=== PATIENT | female | born 1950 | race Caucasian/White ===

== ENCOUNTER 2017-09-30 18:42 | Emergency (ER) | payer BC, MEDICARE ==
[~2017-09-30] VITALS: Ht 162.6 cm; Wt 86.6 kg
[~2017-09-30 18:42] MED LIST changes: -MOVIPREP POWDER PACKET PO STA
[2017-09-30 19:13] VITALS: BP 154/72
[2017-09-30 20:15] VITALS: BP 143/51
[2017-09-30 20:29] LABS: CALCIUM 9.7 mg/dL (8.4-10.5); CARBON DIOXIDE 24.5 mmol/L (20.0-32)
[2017-09-30] MEDS ORDERED: SPS ONE ×2 (20:54→21:22)
[2017-09-30] MEDS: SPS PO STA ×2 (20:57→21:30)
[2017-09-30 21:15] VITALS: BP 146/98
--- NOTE | 2017-09-30 21:20 | ER.PDOC ---
General Chief Complaint: General Complaint Stated Complaint: HIGH POTASSIUM TRAVEL OUT OF US: No Time seen by MD: 20:18 Source: patient Exam Limitations: no limitations History of Present Illness Initial Comments 67 year old white female with high serum Potassium levels. A blood drawn done today for preop prior to colonoscopy Thursday. K came back as 6.8. Denies palpitation, body weakness, shortness of breath, chest pain. On Diclofenac and Naproxen Associated Symptoms: denies symptoms Allergies: Coded Allergies: meperidine (Verified Allergy, Severe, 09/30/17) "I DON'T KNOW THE REACTION, I FELT FUNNY AND RANG THE LOPEZ AND THEY PUT A TUBE DOWN MY THROAT AND TOLD ME NEVER TO TAKE DEMEROL" nut - unspecified (Verified Allergy, Severe, FACIAL SWELLING, 09/30/17) bee venom protein (honey bee) (Verified Allergy, Unknown, 09/30/17) Uncoded Allergies: WASP (Allergy, Unknown, 09/30/17) Home Meds Reported Medications Metformin Hcl (METFORMIN HCL) 500 Mg Tablet, 1 TAB PO BID, #60 TAB 3 Refills 09/30/17 Tolterodine Tartrate (DETROL LA) 4 Mg Cap.er.24h, 1 CAP PO DAILY, #90 CAP 1 Refill 09/30/17 Doxepin Hcl (SILENOR) 6 Mg Tablet, 6 MG PO HS, TABLET 09/30/17 Aspirin (ASPIR-LOW) 81 Mg Tablet.dr, 1 TAB PO DAILY, #30 TAB 3 Refills 09/30/17 Vit A/Vit C/Vit E/Zinc/Copper (PRESERVISION AREDS SOFTGEL) 1 Each Capsule, 1 EACH PO DAILY24, CAPSULE 09/30/17 Cranberry Extract (CRANBERRY) 200 Mg Capsule, 200 MG PO DAILY24, CAPSULE 09/30/17 Pramipexole Di-Hcl (MIRAPEX) 0.25 Mg Tablet, 0.5 TAB PO HS, #30 TAB 5 Refills 09/30/17 Naproxen Sodium (NAPROXEN SODIUM) 550 Mg Tablet, 1 TAB PO BID, #60 TAB 09/30/17 Cyclobenzaprine Hcl (FLEXERIL) 10 Mg Tablet, 1 TAB PO TID PRN for PAIN, #90 TAB 09/30/17 Gabapentin (GABAPENTIN) 300 Mg Capsule, 1 CAP PO TID, #90 CAP 5 Refills 09/30/17 Furosemide (LASIX) 20 Mg Tablet, 1 TAB PO DAILY, #90 TAB 1 Refill 09/30/17 Diclofenac Sodium (DICLOFENAC SODIUM) 75 Mg Tablet.dr, 1 TAB PO BID, #60 TAB 1 Refill 09/30/17 Esomeprazole Magnesium (NEXIUM) 40 Mg Capsule.dr, 1 CAP PO DAILY, #30 CAP 5 Refills 09/30/17 Pravastatin Sodium (PRAVASTATIN SODIUM) 40 Mg Tablet, 1 TAB PO HS, #90 TAB 1 Refill 09/30/17 Metoprolol Tartrate 25MG (LOPRESSER 25MG) 25 Mg Tablet, 1 TAB PO BID, #180 TAB 1 Refill 09/30/17 Olmesartan Medoxomil (BENICAR) 40 Mg Tablet, 1 TAB PO DAILY, #30 TAB 5 Refills 09/30/17 Amlodipine Besylate (AMLODIPINE BESYLATE) 10 Mg Tablet, 1 TAB PO DAILY, #30 TAB 5 Refills 09/30/17 Bupropion Hcl (BUPROPION XL) 300 Mg Tab.er.24h, 1 TAB PO DAILY, #30 TAB 2 Refills 09/30/17 Past Medical History Medical History: diabetes, high cholesterol, hypertension Surgical History: appendectomy, hysterectomy LMP (females 10-50): hysterectomy Social History Smoking: non-smoker Alcohol Use: none Drug Use: none Review of Systems Psychiatric/Neurological: no symptoms reported All Other Systems: Reviewed and Negative Physical Exam General Appearance: No Apparent Distress, WD/WN EENT: eyes nml inspection, nml ENT inspection Neck: Non-Tender, Full Range of Motion Respiratory: chest non-tender, lungs clear, normal breath sounds, no respiratory distress CVS: reg rate & rhythm, no murmur, no gallop, pulses nml, nml capillary refill Gastrointestinal: Normal Bowel Sounds, No Organomegaly, No Pulsatile Mass, Non Tender Back: Normal Inspection, No CVA Tenderness, No Vertebral Tenderness Extremities: Normal Range of Motion, Non-Tender, Normal Inspection, No Pedal Edema, No Calf Tenderness, Normal Capillary Refill, Pelvis Stable 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 Tested, No Motor/Sensory Deficits, Alert, Normal Mood/Affect, Oriented x 3 Skin: Normal Color, Warm/Dry Lymphatic: No Adenopathy Results/Orders Results/Orders Laboratory Tests Test 8/15/18 20:15 Sodium Level 139 mmol/L (132-145) Potassium Level 6.1 mmol/L (3.6-5.2) Chloride Level 105.0 mmol/L (96-109) Carbon Dioxide Level 24.5 mmol/L (20.0-32) Glucose Level 107 mg/dL (70-110) Blood Urea Nitrogen 39 mg/dL (7-18) Creatinine 1.88 mg/dL (0.59-1.40) Calcium Level 9.7 mg/dL (8.4-10.5) Anion Gap 15.6 Estimated GFR () 32.1 (>/=60) BUN/Creatinine Ratio 20.0 Progress Progress EKG did not show changes consistent with hyperkalemia Departure Time of Disposition: 21:17 Disposition: 01 HOME, SELF-CARE Impression: Primary Impression: Hyperkalemia, diminished renal excretion Condition: Stable Referrals: YEFRI ZUNIGA DO (PCP/Family) PRIMARY CARE PROVIDER Comments Kayelate one dose tonight at 12 Repeat chem 7 in AM needs nephrology consult Discontinue Diclofenac and Naproxen Tylenol #3 Follow up pcp RTER prn Duration or Time Spent with Pa: 60 MAT TOBIAS MD Sep 30, 2017 21:20
--- NOTE | 2017-09-30 21:30 | NUR ---
VERBAL ORDER VERBAL ORDER GIVEN BY DR. TOBIAS FOR PATIENT TO TAKE KAYEXELATE 15GM PO AT HOME AT 12:00AM, INSTRUCTIONS GIVEN TO PATIENT. PATIENT VOICED UNDERSTANDING
--- NOTE | 2017-09-30 21:38 | PCM.EKG ---
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
[2017-09-30 21:45] VITALS: BP 149/74
[2017-09-30 21:55] VITALS: BP 143/51
== END 2017-09-30 21:45 | disposition home or self-care (01) ==
LOC: ER 18:42
DX: E87.5 Hyperkalemia (principal); E11.9 Type 2 diabetes mellitus without complications; E78.00 Pure hypercholesterolemia, unspecified; I10 Essential (primary) hypertension; Z90.49 Acquired absence of other specified parts of digestive tract; Z90.710 Acquired absence of both cervix and uterus; Z88.6 Allergy status to analgesic agent; Z91.030 Bee allergy status
CPT/HCPCS: 36415; 80048; 93005; 99285

== ENCOUNTER → 2017-09-30 | Outpatient (CLI) | payer BC, MEDICARE ==
[~2017-09-30] VITALS: Ht 167.6 cm; Wt 86.6 kg
[~2017-09-30] MED LIST: AMLO10TA2 PO; ASPI81TA52 PO; CRAN200C2 PO; CYCL10TA2 PO; DICL75TA2 PO; DOXE6TAB3 PO; ESOM40CA PO; FURO-81 PO; GABA300C10 PO; METF500T5 PO; METO25TA4 PO; MOVIPREP POWDER PACKET PO STA; OLME40TA12 PO; PRAM0.255 PO; PRAV40TA2 PO; TOLT4CAP PO; VIT1CAPS12 PO; [UNRECOGNIZED DRUG - CODE] PO; [UNRECOGNIZED DRUG - CODE] PO
[2017-09-30 15:18] VITALS: BP 153/76
--- NOTE | 2017-09-30 15:37 | PCM.EKG ---
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
[2017-09-30 16:19] LABS: BASOPHIL # 0.1 10^3/uL (0.0-0.1); BASOPHIL % 0.8 % (0.0-0.2); EOSINOPHIL # 0.3 10^3/uL (0.0-0.2); EOSINOPHIL % 2.5 % (0.0-5.0); HEMOGLOBIN 12.1 g/dL (12.0-15.0); LYMPHOCYTES # 2.6 10^3/uL (1.0-4.8); LYMPHOCYTES % 25.7 % (24.0-44.0); MEAN CELL HGB 27.4 pg (26-34); MEAN CELL HGB CONCENTRATION 31.3 g/dL (33-37); MEAN CORP VOLUME 87.6 fL (78-100); MEAN PLATELET VOLUME 11.1 fL (7.8-11.0); MONOCYTES # 0.9 10^3/uL (0.3-0.8); MONOCYTES % 8.9 % (5.0-12.0); NEUTROPHIL # 6.2 10^3/uL (1.8-7.7); NEUTROPHILS % 61.8 % (41.0-85.0); RED CELL DISTRIBUTION WIDTH 14.9 % (11.5-14.5); WHITE BLOOD CELL 10.1 10^3/uL (4.5-11.0)
== END | disposition home or self-care (01) | DRG 951 ==
LOC: LAB 08:00 → EDSTATUS 10-14 08:00
PROVIDERS: ATTEND Surgery
DX: Z12.11 Encounter for screening for malignant neoplasm of colon (principal); Z53.8 Procedure and treatment not carried out for other reasons; Z86.010 Personal history of colon polyps; R13.10 Dysphagia, unspecified; R79.9 Abnormal finding of blood chemistry, unspecified; I10 Essential (primary) hypertension; I25.10 Atherosclerotic heart disease of native coronary artery without angina pectoris; E78.2 Mixed hyperlipidemia; E78.00 Pure hypercholesterolemia, unspecified; E11.9 Type 2 diabetes mellitus without complications; Z90.710 Acquired absence of both cervix and uterus; Z98.890 Other specified postprocedural states; Z88.8 Allergy status to other drugs, medicaments and biological substances; Z90.49 Acquired absence of other specified parts of digestive tract; Z88.6 Allergy status to analgesic agent; Z87.891 Personal history of nicotine dependence
CPT/HCPCS: 36415; 85025; 85610; 85730; 93005

== ENCOUNTER 2017-10-15 01:30 | Day surgery (SDC) | payer BC, MEDICARE ==
[~2017-10-15] VITALS: Ht 167.6 cm; Wt 86.6 kg
[2017-10-15] MEDS ORDERED: NS 1000ML 1,000 ML ONE (05:45)
[2017-10-15 06:34] VITALS: BP 158/73
[2017-10-15] MEDS ORDERED: NS 1000ML 1,000 ML IV SCH (07:00)
[2017-10-15] MEDS ORDERED: SUBLIMAZE ONE (07:05)
[2017-10-15] MEDS ORDERED: LIDOCAINE 2% VIAL ONE (07:05)
[2017-10-15] MEDS ORDERED: DIPRIVAN IV ONE (07:05)
[2017-10-15] MEDS ORDERED: NS 100ML 100 ML IV ONE (07:05)
[2017-10-15 08:51] VITALS: BP 107/54
[2017-10-15 09:05] VITALS: BP 123/79
[2017-10-15 09:20] VITALS: BP 150/60
[2017-10-15 09:25] VITALS: BP 150/60
--- NOTE | 2017-10-15 09:59 | OPH ---
DATE OF SURGERY: 10/15/2017 PREOPERATIVE DIAGNOSIS: History of dysphagia and need for screening. POSTOPERATIVE DIAGNOSES: 1. Gastritis. 2. Healthy colon. SURGEON: Laith Myers DO MEASUREMENT TECHNICIAN: OR staff. ANESTHESIA: Total intravenous anesthesia by Yenifer Bhatt CRNA PROCEDURE PERFORMED: 1. Esophagogastroduodenoscopy with biopsy. 2. Long flexible colonoscopy to cecum. SPECIMENS: Gastric mucosa to path. ESTIMATED BLOOD LOSS: 3 mL. COUNTS: At the completion of the case, counts were correct per OR staff. DESCRIPTION OF PROCEDURE: The patient is a very pleasant 67-year-old female known from previous evaluation. Prior to procedure, informed consent was obtained. At the time of procedure, she was taken to the operative suite and placed in left lateral recumbent position. After adequate sedation, esophagogastroduodenoscope was advanced transorally with pneumoinflation distally in second portion of duodenum. Once the duodenum was adequately visualized, the camera was slowly withdrawn to facilitate the visualization of the duodenal bulb and the pylorus. The pylorus does show some gastritis and biopsies were obtained. The retroflexed maneuver was performed. Cardia and fundus were grossly normal. Camera was reduced. Stomach was decompressed with good hemostasis noted. Scope was slowly withdrawn. Distal, mid and proximal esophagus within normal limits. Vocal cords were visualized within normal limits. Camera was removed. Procedure was discontinued. The patient remains in the OR. Timeout was previously completed. With adequate sedation, a rectal exam was performed. There were no masses. Next, the colonoscope was advanced transanally with pneumoinflation proximally to level of cecum. Quality of prep was adequate. There is some retained liquid stool noted throughout. Once cecum was visualized, camera was slowly withdrawn to facilitate visualization of the ascending colon, hepatic flexure, transverse colon, splenic flexure, descending colon, sigmoid and rectum. There were no overt masses, polyps, or AVMs. At the level 5 cm, camera was retroflexed and reinserted. Anal verge was visualized within normal limits. Camera was reduced, colon was decompressed. Colonoscope was removed. The patient tolerated these procedures well. There were no acute complications noted. Laith Myers DO DR: HARRY/kortney JOB# [id number] CC: Ziyad Green NP
== END 2017-10-15 09:33 | disposition home or self-care (01) | DRG 951 ==
LOC: SDC 01:30
PROVIDERS: ATTEND Surgery
DX: Z12.11 Encounter for screening for malignant neoplasm of colon (principal); K29.50 Unspecified chronic gastritis without bleeding; M19.90 Unspecified osteoarthritis, unspecified site; E11.9 Type 2 diabetes mellitus without complications; K21.9 Gastro-esophageal reflux disease without esophagitis; I10 Essential (primary) hypertension; E66.9 Obesity, unspecified; I25.10 Atherosclerotic heart disease of native coronary artery without angina pectoris; E78.2 Mixed hyperlipidemia; E78.00 Pure hypercholesterolemia, unspecified; Z98.890 Other specified postprocedural states; Z90.722 Acquired absence of ovaries, bilateral; Z90.49 Acquired absence of other specified parts of digestive tract; Z82.49 Family history of ischemic heart disease and other diseases of the circulatory system; Z86.010 Personal history of colon polyps; Z83.3 Family history of diabetes mellitus; Z82.3 Family history of stroke; Z87.891 Personal history of nicotine dependence; Z79.899 Other long term (current) drug therapy; Z79.84 Long term (current) use of oral hypoglycemic drugs; Z88.8 Allergy status to other drugs, medicaments and biological substances; Z91.030 Bee allergy status; Z90.710 Acquired absence of both cervix and uterus; Z88.6 Allergy status to analgesic agent; Z68.30 Body mass index [BMI] 30.0-30.9, adult
CPT/HCPCS: 43239; 45378; 82948 ×2; 88305; J2001; J3010; J3490; J7030; J7050; G0105

== ENCOUNTER 2017-11-12 17:10 | Inpatient (IN) | payer BC, MEDICARE ==
[~2017-11-12] VITALS: Ht 162.6 cm; Wt 91.3 kg
[~2017-11-12 17:10] MED LIST changes: -AMLO10TA2 PO; +AMLO10TA6 PO; +METF500T17 PO; -METF500T5 PO
[2017-11-12] MEDS ORDERED: NS 1000ML 1,000 ML IV ONE (17:30)
[2017-11-12] MEDS ORDERED: NS 1000ML 1,000 ML ONE ×3 (17:36→20:25)
[2017-11-12 17:44] LABS: BASOPHIL % 0.2 % (0.0-0.2); HEMOGLOBIN 9.6 g/dL (12.0-15.0); LYMPHOCYTES # 0.6 10^3/uL (1.0-4.8); LYMPHOCYTES % 4.2 % (24.0-44.0); MEAN CELL HGB 26.8 pg (26-34); MEAN CELL HGB CONCENTRATION 31.9 g/dL (33-37); MEAN CORP VOLUME 84.1 fL (78-100); MEAN PLATELET VOLUME 11.4 fL (7.8-11.0); NEUTROPHIL # 11.2 10^3/uL (1.8-7.7); RED CELL DISTRIBUTION WIDTH 14.5 % (11.5-14.5); WHITE BLOOD CELL 13.9 10^3/uL (4.5-11.0)
[2017-11-12 17:50] VITALS: BP 132/53
--- NOTE | 2017-11-12 18:00 | ER.PDOC ---
General Chief Complaint: Nausea Stated Complaint: KIDNEY PROBLEMS TRAVEL OUT OF US: No Time seen by MD: 17:00 Source: patient Exam Limitations: no limitations History of Present Illness Initial Comments Pt states that her PCP called her today and told her to come to the ER for worsening kidney function on labs this am. She stats that she has been "feeling bad for a couple of days-it silva when I urinate, I haven't had an appetite and I've been nauseated and weak" Severity: moderate Associated Symptoms: loss of appetite, malaise, nausea/vomiting, weakness Allergies: Coded Allergies: meperidine (Verified Allergy, Severe, 09/30/17) "I DON'T KNOW THE REACTION, I FELT FUNNY AND RANG THE LOPEZ AND THEY PUT A TUBE DOWN MY THROAT AND TOLD ME NEVER TO TAKE DEMEROL" nut - unspecified (Verified Allergy, Severe, FACIAL SWELLING, 09/30/17) bee venom protein (honey bee) (Verified Allergy, Unknown, 09/30/17) Uncoded Allergies: WASP (Allergy, Unknown, 09/30/17) Home Meds Reported Medications Metformin Hcl (METFORMIN HCL) 500 Mg Tablet, 1 TAB PO BID, #60 TAB 3 Refills 09/30/17 Tolterodine Tartrate (DETROL LA) 4 Mg Cap.er.24h, 1 CAP PO DAILY, #90 CAP 1 Refill 09/30/17 Doxepin Hcl (SILENOR) 6 Mg Tablet, 6 MG PO HS, TABLET 09/30/17 Aspirin (ASPIR-LOW) 81 Mg Tablet.dr, 1 TAB PO DAILY, #30 TAB 3 Refills 09/30/17 Vit A/Vit C/Vit E/Zinc/Copper (PRESERVISION AREDS SOFTGEL) 1 Each Capsule, 1 EACH PO DAILY24, CAPSULE 09/30/17 Cranberry Extract (CRANBERRY) 200 Mg Capsule, 200 MG PO DAILY24, CAPSULE 09/30/17 Pramipexole Di-Hcl (MIRAPEX) 0.25 Mg Tablet, 0.5 TAB PO HS, #30 TAB 5 Refills 09/30/17 Cyclobenzaprine Hcl (FLEXERIL) 10 Mg Tablet, 1 TAB PO TID PRN for PAIN, #90 TAB 09/30/17 Gabapentin (GABAPENTIN) 300 Mg Capsule, 1 CAP PO TID, #90 CAP 5 Refills 09/30/17 Furosemide (LASIX) 20 Mg Tablet, 1 TAB PO DAILY, #90 TAB 1 Refill 09/30/17 Esomeprazole Magnesium (NEXIUM) 40 Mg Capsule.dr, 1 CAP PO DAILY, #30 CAP 5 Refills 09/30/17 Pravastatin Sodium (PRAVASTATIN SODIUM) 40 Mg Tablet, 1 TAB PO HS, #90 TAB 1 Refill 09/30/17 Metoprolol Tartrate 25MG (LOPRESSER 25MG) 25 Mg Tablet, 1 TAB PO BID, #180 TAB 1 Refill 09/30/17 Olmesartan Medoxomil (BENICAR) 40 Mg Tablet, 1 TAB PO DAILY, #30 TAB 5 Refills 09/30/17 Amlodipine Besylate (AMLODIPINE BESYLATE) 10 Mg Tablet, 1 TAB PO DAILY, #30 TAB 5 Refills 09/30/17 Bupropion Hcl (BUPROPION XL) 300 Mg Tab.er.24h, 1 TAB PO DAILY, #30 TAB 2 Refills 09/30/17 Discontinued Reported Medications Diclofenac Sodium (DICLOFENAC SODIUM) 75 Mg Tablet.dr, 1 TAB PO BID, #60 TAB 1 Refill 09/30/17 Past Medical History Medical History: diabetes, renal disease Surgical History: appendectomy, hysterectomy LMP (females 10-50): postmenopause Social History Smoking: non-smoker Alcohol Use: none Drug Use: none Reviewed Nursing Reviewed: Vital Signs, Abn. Noted, Nursing Assessment Review of Systems Constitutional: malaise, weakness EENTM: denies no symptoms reported, denies see HPI, denies eye pain, denies blurred vision, denies tearing, denies double vision, denies ear pain, denies ear discharge, denies nose pain, denies nose congestion, denies throat pain, denies throat swelling, denies mouth pain, denies mouth swelling, denies other Gastrointestinal: denies abdominal pain, denies constipation, denies diarrhea; nausea Genitourinary: dysuria; denies frequency, denies hematuria, denies pain Musculoskeletal: denies no symptoms reported, denies see HPI, denies back pain , denies gout, denies joint pain, denies joint swelling, denies muscle pain, denies muscle stiffness, denies neck pain, denies other Skin: denies no symptoms reported, denies see HPI, denies change in color, denies change in hair/nails, denies dryness, denies lesions, denies lumps, denies rash, denies other All Other Systems: Reviewed and Negative Physical Exam General Appearance: Mild Distress EENT: eyes nml inspection, nml ENT inspection, pharynx nml Neck: Non-Tender, Full Range of Motion, Supple, Normal Inspection Respiratory: chest non-tender, lungs clear, normal breath sounds, no respiratory distress, no accessory muscle use CVS: reg rate & rhythm, no murmur, no gallop, pulses nml, nml capillary refill Gastrointestinal: Normal Bowel Sounds, No Organomegaly, No Pulsatile Mass, Non Tender Back: Normal Inspection, No CVA Tenderness, No Vertebral Tenderness Extremities: Normal Range of Motion, Non-Tender, Normal Inspection 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 NML as Tested, No Motor/Sensory Deficits, Alert, Normal Mood/Affect, Oriented x 3 Skin: Warm/Dry, Pallor Results/Orders Results/Orders Laboratory Tests Test 11/12/17 17:38 11/12/17 19:30 White Blood Count 13.9 10^3/uL (4.5-11.0) Red Blood Count 3.58 10^6/uL (4.00-5.20) Hemoglobin 9.6 g/dL (12.0-15.0) Hematocrit 30.1 % (36.0-46.0) Mean Corpuscular Volume 84.1 fL (78-100) Mean Corpuscular Hemoglobin 26.8 pg (26-34) Mean Corpuscular Hemoglobin Concent 31.9 g/dL (33-37) Red Cell Distribution Width 14.5 % (11.5-14.5) Platelet Count 185 10^3/uL (150-400) Mean Platelet Volume 11.4 fL (7.8-11.0) Neutrophils (%) (Auto) 81.0 % (41.0-85.0) Lymphocytes (%) (Auto) 4.2 % (24.0-44.0) Monocytes (%) (Auto) 14.0 % (5.0-12.0) Neutrophils # (Auto) 11.2 10^3/uL (1.8-7.7) Lymphocytes # (Auto) 0.6 10^3/uL (1.0-4.8) Monocytes # (Auto) 2.0 10^3/uL (0.3-0.8) Absolute Immature Granulocyte (auto 0.09 10^3 u/L (0-2) Eosinophils % 0.0 % (0.0-5.0) Basophils % 0.2 % (0.0-0.2) Basophils # 0.0 10^3/uL (0.0-0.1) Eosinophil Count 0.0 10^3/uL (0.0-0.2) Sodium Level 135 mmol/L (132-145) Potassium Level 4.0 mmol/L (3.6-5.2) Chloride Level 100.0 mmol/L (96-109) Carbon Dioxide Level 17.8 mmol/L (20.0-32) Anion Gap 21.2 Blood Urea Nitrogen 37 mg/dL (7-18) Creatinine 2.38 mg/dL (0.59-1.40) Estimated GFR () 24.5 (>/=60) BUN/Creatinine Ratio 15.0 Glucose Level 118 mg/dL (70-110) Calcium Level 8.9 mg/dL (8.4-10.5) Total Bilirubin 0.5 mg/dL (0.2-1.0) Aspartate Amino Transf (AST/SGOT) 30 U/L (0-35) Alanine Aminotransferase (ALT/SGPT) 31 U/L (12-78) Alkaline Phosphatase 103 U/L (50-136) Troponin I < 0.02 ng/mL (0.00-0.05) Total Protein 7.3 g/dL (6.4-8.2) Albumin 2.6 g/dL (3.4-5.0) Globulin 4.7 Percent Immature Gran (Cell Imm) 0.60 % (0.00-0.50) Urine Collection Type UNKNOWN Urine Color YELLOW (YELLOW) Urine Appearance CLOUDY (CLEAR) Urine Bilirubin NEGATIVE MG/DL (NEGATIVE) Urine Ketones 5 mg/dL (NEGATIVE) Urine Specific [place] 1.010 (1.005-1.035) Urine pH 5 (5.0-6.0) Urine Protein 15 mg/dL (NEGATIVE) Urine Urobilinogen NORMAL (NEGATIVE) Urine Nitrate NEGATIVE (NEGATIVE) Urine Leukocyte Esterase 500/uL 2+ (NEGATIVE) Urine Blood 10 TR (NEGATIVE) Urine RBC 0-2 RBC/HPF (NONE SEEN) Urine WBC TNTC WBC/HPF (0-2) Urine Squamous Epithelial Cells FEW #/HPF (FEW) Urine Bacteria MODERATE (NONE SEEN) Urine Coarse Granular Casts 0-2 #/LPF Urine Glucose NORMAL (NEGATIVE) Administered Medications Medications (Trade) Dose Ordered Sig/Doug Route PRN Reason Start Time Stop Time Status Last Admin Dose Admin Sodium Chloride 1,000 ml @ 1,000 mls/hr Q1H ONCE IV 11/12/17 17:30 11/12/17 18:30 DC 11/12/17 17:48 Sodium Chloride 1,000 ml @ 1,000 mls/hr Q1H STAT IV 11/12/17 19:26 11/12/17 20:25 11/12/17 19:27 Assess: increased Cr is most likely due to the severe UTI she has plus dehydration. THis should respond well to IV rocephin and IVFs. Progress Progress Recheck 20:00- pt feeling a little bit better after 1 L IVF. Informed her of plan to admit her for IVF IVABs serial labs and she agrees. ph call DR Garcia (hospitalist on duty) case discussed and will admit pt Departure Time of Disposition: 20:06 Disposition: 09 ADMITTED INPATIENT Impression: Primary Impression: UTI (urinary tract infection) Additional Impressions: Dehydration Renal failure (ARF), acute on chronic Condition: Stable Referrals: JOHN MAGALLANES NP (PCP) PRIMARY CARE PROVIDER YEFRI ZUNIGA DO (Family) Duration or Time Spent with Pa: 35 DALTON MANE MD Nov 12, 2017 18:00
[2017-11-12 18:04] LABS: ALANINE AMINOTRANSFERASE(ML) 31 U/L (12-78); ALKALINE PHOSPHATASE 103 U/L (50-136); ASPARTATE AMINO TRANSFERASE 30 U/L (0-35); CALCIUM 8.9 mg/dL (8.4-10.5); CARBON DIOXIDE 17.8 mmol/L (20.0-32); GLUCOSE 118 mg/dL (70-110)
--- NOTE | 2017-11-12 18:06 | NUR ---
PT ARRIVED TO ED VIA POA. ASSISTED BACK TO ROOM VIA W/C WITH AT SIDE. PT C/O N/V AND FLANK PAIN. PT REPORTS SEEING PHYSICIAN EARLIER TODAY WHERE LABS WERE COMPLETED. PT WAS CALLED THIS AFTERNOON BY PHYSICIANS OFFICE AND WAS TOLD TO COME TO ED AFTER RESULTS OF KIDNEY FUNCTION PANEL WAS READ. PT STATES SHE HAS A HX OF KIDNEY PROBLEMS. PT ALSO C/O SORES TO THE MOUTH AND FEVER/CHILLS THAT STARTED THURSDAY.
[2017-11-12 18:45] VITALS: BP 118/53
[2017-11-12] MEDS ORDERED: NS 1000ML 1,000 ML IV STA (19:26)
[2017-11-12 19:31] LABS: BILIRUBIN,URINE NEGATIVE (NEGATIVE); UROBILINOGEN,URINE NORMAL (NEGATIVE)
[2017-11-12 19:45] VITALS: BP 116/41
[2017-11-12 19:47] LABS: APPEARANCE,URINE CLOUDY (CLEAR); UA COLOR YELLOW (YELLOW)
--- NOTE | 2017-11-12 20:00 | NUR ---
ENEDINA MANE ON PHONE WITH DR. MCCONNELL AT THIS TIME REGARDING PT ADMISSION. DR. MCCONNELL TO ADMIT PT TO [facility].
[2017-11-12 20:15] VITALS: BP 134/62
[2017-11-12] MEDS: ROCEPHIN 1,000 MG in NS 100ML 100 ML IV SCH (20:24)
[2017-11-12] MEDS ORDERED: ROCEPHIN ONE (20:26)
[2017-11-12] MEDS ORDERED: NS 100ML 100 ML IV ONE (20:26)
[2017-11-12] MEDS ORDERED: ROCEPHIN 1,000 MG in NS 100ML 100 ML IV SCH (20:30)
--- NOTE | 2017-11-12 20:45 | NUR ---
ADMIT TO [facility] PT TO ROOM 336 A VIA WHEELCHAIR ACCOMPANIED BY PETTY MCNEAL AND PT SPOUSE. PT REMAINS ON ROOM AIR, VITALS STABLE. IV PATENT. NO SIGNS OF DISTRESS NOTED. PERSONAL BELONGINGS SENT WITH PT. REPORT CALLED TO PETTY LORENZANA. RELINQUISH CARE.
[2017-11-12 21:00] VITALS: BP 112/67
[2017-11-12] MEDS ORDERED: TYLENOL PO PRN (21:30)
[2017-11-12] MEDS ORDERED: LIDOCAINE VISCOUS ONE (21:33)
--- NOTE | 2017-11-12 21:45 | NUR ---
Mirza Mirza cath 18F in place per order. Education and teaching about catheter given. Pt verbalized understanding
[2017-11-12] MEDS ORDERED: ONDA4TAB12 PO (22:02)
[2017-11-12] MEDS ORDERED: FAMC500T PO (22:02)
[2017-11-12] MEDS: LIDOCAINE VISCOUS MM PRN (22:02)
[2017-11-12 23:44] VITALS: BP 113/45
[2017-11-13] MEDS ORDERED: TYLENOL PO PRN (00:30)
[2017-11-13] MEDS ORDERED: MIRAPEX ONE (01:07)
--- NOTE | 2017-11-13 01:17 | NUR ---
mirapex Nurse called physician about pt's restless legs. Pt. said its miserable. Physician agreed to continue pt mirapex home meds. Nurse entered the order but did not show in the EMAR. Nurse administered the mirapex to pt and document the administration without scanning.
[2017-11-13 04:14] VITALS: BP 116/69
[2017-11-13] MEDS ORDERED: NS 1000ML 1,000 ML ONE ×2 (04:53→19:26)
[2017-11-13 06:59] LABS: CALCIUM 8.3 mg/dL (8.4-10.5); CARBON DIOXIDE 19.7 mmol/L (20.0-32)
[2017-11-13] MEDS ORDERED: FLEXERIL PO PRN (08:30)
[2017-11-13] MEDS ORDERED: NS 1000ML 1,000 ML IV ONE (09:00)
[2017-11-13] MEDS: FAMVIR PO SCH ×2 (09:00→21:43)
[2017-11-13 09:24] VITALS: BP 144/55
[2017-11-13] MEDS: NORVASC PO SCH (09:37)
[2017-11-13] MEDS: LOPRESSER PO SCH ×2 (09:37→21:44)
[2017-11-13] MEDS: LASIX PO SCH (09:37)
[2017-11-13] MEDS: PROTONIX PO SCH (09:37)
[2017-11-13] MEDS: WELLBUTRIN XL PO SCH (09:38)
[2017-11-13] MEDS: NEURONTIN PO SCH ×3 (09:38→21:43)
[2017-11-13] MEDS: DITROPAN PO SCH ×3 (09:38→21:43)
[2017-11-13] MEDS: ASPIRIN EC PO SCH (09:38)
[2017-11-13] MEDS: MYCOSTATIN PO SCH ×3 (09:38→21:43)
[2017-11-13] MEDS: COZAAR PO SCH (09:38)
--- NOTE | 2017-11-13 10:33 | HPH ---
ADMIT DATE: PRIMARY CARE PHYSICIAN: Ziyad Green NP CHIEF COMPLAINT: Reported kidney problems. HISTORY OF PRESENT ILLNESS: The patient is a 67-year-old woman with a past medical history significant for chronic kidney disease with unknown baseline, likely CKD stage 3; hyperlipidemia; GERD; diabetes mellitus type 2; hypertension. She presented to the ER with initial reports of kidney problems. She states her PCP called and stated that her kidneys were worsening on labs I did and asked her to go to the Emergency Room. She has had 3 days of generalized body aches and pains, some subjective fever and chills. Also complains of some dysuria. She had decreased appetite and felt nauseated and weak. These symptoms have been going on for several days. She has no known sick contacts. She had recent travel to [place], [place] about 2 weeks ago. She does have some thrush noted in her mouth and has not had that problem before. She recently started on famciclovir, but it is unclear treatment for what this was given. No other recent medication changes. PAST MEDICAL HISTORY: Includes hypertension, diabetes mellitus type 2, peripheral neuropathy, GERD, hyperlipidemia, urinary incontinence. PAST SURGICAL HISTORY: She has had appendectomy, hysterectomy. ALLERGIES: Allergic to MEPERIDINE and BEE VENOM. HOME MEDICATIONS: List includes amlodipine 10 mg daily, aspirin 81 mg daily, bupropion 300 mg daily, cranberry 200 mg daily, Flexeril as needed for muscle spasms, doxepin 6 mg at night, Nexium 40 mg daily, famciclovir 500 mg twice a day, Lasix 20 mg daily, gabapentin 300 mg 3 times a day, metformin 500 mg twice a day, metoprolol tartrate 25 mg twice a day, Benicar 40 mg daily, Zofran as needed, Mirapex 0.25 mg tablet and she takes 2 tablets at night, pravastatin 40 mg daily, Detrol-LA 4 mg daily and PreserVision daily. SOCIAL HISTORY: Lives at home. No alcohol, tobacco or illicit drug use history. FAMILY HISTORY: Negative for early coronary artery disease or diabetes. REVIEW OF SYSTEMS: CARDIAC: Denies chest pain, shortness of breath or dyspnea on exertion. PULMONARY: No cough, sputum production or pleuritic chest pain. GASTROINTESTINAL: Some mild nausea, no vomiting, diarrhea or constipation. All else negative in 10 point review of system except as in HPI. PHYSICAL EXAMINATION: VITAL SIGNS: Upon arrival to the Emergency Room, height 162.5 cm, weight 90.5 kilograms, temperature 99.1, pulse of 109, respiratory rate 18, blood pressure 132/53, O2 saturation 95% on room air. GENERAL: She is alert, in no acute distress at time of exam. HEENT: Pupils equal, round, reactive to light. Sclerae are anicteric. Oropharynx shows some thrush. Mucous membranes are slightly dry. NECK: Supple, no lymphadenopathy. CARDIOVASCULAR: At time of exam was slightly tachycardic, regular rhythm. LUNGS: Clear bilaterally. No wheezing. ABDOMEN: Soft. Bowel sounds are present, nontender to palpation. EXTREMITIES: No cyanosis, clubbing or significant edema. NEUROLOGIC: Grossly nonfocal. LABORATORY DATA: CBC: White count 13.9, hemoglobin 9.6 and platelets 185. Differential: 81% neutrophils, 4% lymphocytes, 14% monocytes. Sodium 135, potassium 4.0, chloride is 100, CO2 is 18, BUN 37, creatinine 2.38, glucose 118, calcium is 8.9, total bilirubin 0.5, AST 30, ALT is 31, alkaline phosphatase is 103, total protein 7.3, albumin 2.6. Troponin I is less than 0.02. UA; pH is 5.0, specific gravity is 1.010, 15 mg/dL of protein, too numerous to count wbc's, few squamous epithelial cells, moderate bacteria. ASSESSMENT AND PLAN: The patient is a 67-year-old woman here with viral syndrome concerning for influenza with urinary tract infection and acute renal failure on top of chronic kidney disease stage 3 due to acute tubular necrosis, dehydration with multiple medical problems including diabetes mellitus type 2, hypertension, hyperlipidemia. She also has anemia due to chronic disease and moderate protein-calorie malnutrition. 1. We will continue IV fluids. 2. Continue IV antibiotics. We will check an influenza swab. Symptoms have been present for 4 days unless the influenza swab is positive, we will hold off on starting Tamiflu at this point. 3. ADA diet, Accu-Cheks before meals and at bedtime, sliding scale insulin. 4. Continue rest of her home medications. 5. Ambulate as tolerated. 6. DVT prophylaxis with SCDs. Time spent on 11/13/2017 is 45 minutes. This plan was discussed with the patient. She is her own decision maker. She does understand and concur with plans. Shahram Garcia MD DR: LYNDA/kortney JOB# [id number]
--- NOTE | 2017-11-13 10:40 | NUR ---
DISCHARGE PLAN CM VISITED WITH PATIENT REGARDING DISCHARGE PLAN AND NEEDS. PATIENT LIVES AT HOME WITH HER ON A RANCH. SHE IS VERY ACTIVE AND INDEPENDENT AND DENIES NEED FOR ANY RESOURCES AT THIS TIME. DISCHARGE GOAL IS TO DISCHARGE HOME WITH HER AND CONTINUE WITH ROUTINE SELF CARE. CM DEPT WILL CONTINUE TO MONITOR DISCHARGE NEEDS.
[2017-11-13 16:53] VITALS: BP 136/61
--- NOTE | 2017-11-13 18:55 | NUR ---
REPORT RECEIVED FROM PETTY NAVARRO.
[2017-11-13 19:19] VITALS: BP 123/48
--- NOTE | 2017-11-13 19:30 | NUR ---
ASSESSMENT COMPLETED. PATIENT SITTING UP IN BED. AT BEDSIDE. PATIENT STATES "MY MOUTH IS HURTING SOOOO BAD!! IT FEELS LIKE KNIVES ARE CUTTING IT UP! IT FONSECA!" LESIONS PRESENT ON ROOF OF MOUTH, YELLOW PATCHES, LESION PRESENT ON TOP LIP, PATIENT REPORTS LESIONS BEGAN ABOUT 4 DAYS AGO. PATIENT DENIES HX OF LESIONS BEFORE. REPORTS UNABLE TO EAT AND DRINKING HAS BEEN DIFFICULTY. STATES "I AM FINALLY ABLE TO TOLERATE DRINKING WATER NOW. IT FELT LIKE ACID FOR A WHILE." ADMINISTERED VISCOUS LIDOCAINE. PATIENT APPLYING TO LESIONS AND REPORTS SOME PAIN RELIEF. PATIENT DENIES S/S HYPO/HYPERGLYCEMIA. ALY PATENT DRAINING CLEAR YELLOW URINE TO CDU. SECURED TO LEFT THIGH. IV PATENT WITHOUT S/S INFILTRATION. NS INFUSING VIA PUMP AT 150CC/HR. NO DISTRESS NOTED AT PRESENT. SR UP X2. CALL LIGHT WITHIN REACH.
[2017-11-13] MEDS: LIDOCAINE VISCOUS MM PRN (19:32)
[2017-11-13] MEDS: ZOCOR PO SCH (21:43)
[2017-11-13] MEDS: ROCEPHIN 1,000 MG in NS 100ML 100 ML IV SCH (21:43)
[2017-11-13] MEDS: MIRAPEX PO SCH (21:44)
[2017-11-13] MEDS: NS 1000ML 1,000 ML IV SCH (21:46)
[2017-11-13] MEDS: REQUIP PO SCH (22:34)
--- NOTE | 2017-11-14 00:10 | NUR ---
PATIENT AWAKENED EASILY WHILE ASSESSING VITAL SIGNS. DENIES PAIN OR DISCOMFORT. ASSISTED WITH REPOSITIONING AND COMFORT MEASURES. SR UP X2. CALL LIGHT WITHIN REACH.
[2017-11-14 00:23] VITALS: BP 115/53
[2017-11-14 04:00] VITALS: BP 120/63
[2017-11-14 05:30] LABS: CALCIUM 8.3 mg/dL (8.4-10.5); CARBON DIOXIDE 19.6 mmol/L (20.0-32)
--- NOTE | 2017-11-14 06:33 | NUR ---
REPORT REPORT RECEIVED, ASSUMED CARE OF PT
[2017-11-14 07:50] VITALS: BP 148/62
[2017-11-14] MEDS: NS 1000ML 1,000 ML IV SCH (07:51)
[2017-11-14] MEDS: MYCOSTATIN PO SCH ×3 (09:35→20:50)
[2017-11-14] MEDS: LASIX PO SCH (09:36)
[2017-11-14] MEDS: ASPIRIN EC PO SCH (09:36)
[2017-11-14] MEDS: PROTONIX PO SCH (09:36)
[2017-11-14] MEDS: NORVASC PO SCH (09:36)
[2017-11-14] MEDS: COZAAR PO SCH (09:36)
[2017-11-14] MEDS: WELLBUTRIN XL PO SCH (09:36)
[2017-11-14] MEDS: FAMVIR PO SCH ×2 (09:36→20:50)
[2017-11-14] MEDS: DITROPAN PO SCH ×3 (09:37→20:50)
[2017-11-14] MEDS: NEURONTIN PO SCH ×3 (09:37→20:50)
[2017-11-14] MEDS: LOPRESSER PO SCH ×2 (09:37→20:50)
--- NOTE | 2017-11-14 11:09 | PRM.PN ---
Subjective Subjective Date: Nov 14, 2017 Time: 10:55 Subjective Pt feeling better Patient History: Cerebrovascular disorder 32 MOTHER, , Age:71 Chronic obstructive pulmonary disease G8 SISTER Diabetes insipidus 33 FATHER, , Age:89 Diabetes mellitus V19 CHILD V19 CHILD Hypertension 32 MOTHER, , Age:69 33 FATHER, , Age:89 No known health problems G8 SISTER G8 SISTER No Family History of: Alzheimer's disease Asthma Congestive heart failure Parkinson's disease VTE VTE Risk Total Score: 2 VTE Risk Score VTE Risk: Score 0-1 = Low Risk (Aggressive mobilization; early ambulation; no VTE prophylaxis required) Score 2: Moderate Risk (Intermittent/Pneumatic Compression Device OR Lovenox/Heparin/Coumadin) Score 3-4: High Risk (Intermittent/Pneumatic Compression Device AND Lovenox/Heparin/Coumadin) Score > or =5: Highest Risk (Intermittent/Pneumatic Compression Device AND Lovenox/Heparin/Coumadin) Antico:Hep/LMWH/Coum/Xarelto: No Mechanical device ordered: Yes Reasons not ordering prophylax: Renal impairment, At risk for falls Review of Systems Constitutional: No: Weakness, Malaise Eyes: No: Pain, Vision change, Conjunctivae inflammation, Eyelid inflammation ENT: No: Ear pain, Ear discharge, Nose pain, Nose discharge Respiratory: No: Cough, Dry, Shortness of breath, SOB with excertion Cardiovascular: No: Chest Pain, Palpitations, Orthopnea, Paroxysmal Noc. Dyspnea Gastrointestinal: No: Nausea, Abdominal Pain, Diarrhea, Constipation Genitourinary: No Dysuria, No Frequency, No Incontinence, No Hematuria Musculoskeletal: No: neck pain, shoulder pain, arm pain, back pain Skin: No: Lesions, Jaundice, Bruising Neurological: No: Numbness, Incoordination, Change in speech, Confusion, Seizures Allergies: Coded Allergies: meperidine (Verified Allergy, Severe, 09/30/17) "I DON'T KNOW THE REACTION, I FELT FUNNY AND RANG THE [facility] AND THEY PUT A TUBE DOWN MY THROAT AND TOLD ME NEVER TO TAKE DEMEROL" nut - unspecified (Verified Allergy, Severe, FACIAL SWELLING, 09/30/17) bee venom protein (honey bee) (Verified Allergy, Unknown, 09/30/17) Uncoded Allergies: WASP (Allergy, Unknown, 09/30/17) Scheduled Amlodipine Besylate (Amlodipine Besylate), 1 TAB PO DAILY, (Reported) Aspirin (Aspir-Low), 1 TAB PO DAILY, (Reported) Bupropion Hcl (Bupropion Xl), 1 TAB PO DAILY, (Reported) Cranberry Extract (Cranberry), 200 MG PO DAILY24, (Reported) Doxepin Hcl (Silenor), 6 MG PO HS, (Reported) Esomeprazole Magnesium (Nexium), 1 CAP PO DAILY, (Reported) Famciclovir (Famciclovir), 500 MG PO BID, (Reported) Furosemide (Lasix), 1 TAB PO DAILY, (Reported) Gabapentin (Gabapentin), 1 CAP PO TID, (Reported) Metformin Hcl (Metformin Hcl), 1 TAB PO BID, (Reported) Metoprolol Tartrate 25MG (Lopresser 25MG), 1 TAB PO BID, (Reported) Olmesartan Medoxomil (Benicar), 1 TAB PO DAILY, (Reported) Ondansetron Hcl (Ondansetron Hcl), 4 MG PO Q8HR, (Reported) Pramipexole Di-Hcl (Mirapex), 0.5 TAB PO HS, (Reported) Pravastatin Sodium (Pravastatin Sodium), 1 TAB PO HS, (Reported) Tolterodine Tartrate (Detrol La), 1 CAP PO DAILY, (Reported) Vit A/Vit C/Vit E/Zinc/Copper (Preservision Areds Softgel), 1 EACH PO DAILY24, ( Reported) Scheduled PRN Cyclobenzaprine Hcl (Flexeril), 1 TAB PO TID PRN for PAIN, (Reported) Discontinued Medications Diclofenac Sodium (Diclofenac Sodium), 1 TAB PO BID, (Reported) Discontinued Reason: No Longer Taking Objective Vitals and I/O Vital Sign - Last 24 Hours 11/13/17 11/13/17 11/13/17 11/13/17 16:53 19:19 19:30 21:44 Temp 98.3 100.5 98.3 100.5 Pulse 90 87 87 Resp 18 20 B/P (MAP) 136/61 (86) 123/48 (73) 123/48 Pulse Ox 96 96 O2 Delivery Room Air Room Air Room Air 11/14/17 11/14/17 11/14/17 11/14/17 00:23 04:00 09:36 09:36 Temp 99.7 98.4 99.7 98.4 Pulse 82 84 84 Resp 18 18 B/P (MAP) 115/53 (73) 120/63 (82) 120/63 120/63 Pulse Ox 92 93 O2 Delivery Room Air Room Air 11/14/17 11/14/17 09:36 09:37 Pulse 84 B/P (MAP) 120/63 120/63 Intake and Output 11/13/17 11/13/17 11/14/17 15:00 23:00 07:00 Output Total 2400 ml Balance -2400 ml General: Alert, No acute distress HEENT: Atraumatic, Mucous membr. moist/pink Neck: Supple, +2 carotid pulse wo bruit Lungs: Clear to auscultation, Normal air movement Heart: Regular rate, Normal S1, Normal S2 Abdomen: Normal bowel sounds, Soft, No tenderness Extremities: No clubbing, No cyanosis, No edema Skin: No rashes, No breakdown, No significant lesion Neuro: Normal gait, Normal speech Course Sepsis Screening Results: Posi: POSITIVE Sepsis Qualifier/Stage: NO DEFINITE RISK Vitals & review Data Vital Sign - Last 24 Hours 11/13/17 11/13/17 11/13/17 11/13/17 16:53 19:19 19:30 21:44 Temp 98.3 100.5 98.3 100.5 Pulse 90 87 87 Resp 18 20 B/P (MAP) 136/61 (86) 123/48 (73) 123/48 Pulse Ox 96 96 O2 Delivery Room Air Room Air Room Air 11/14/17 11/14/17 11/14/17 11/14/17 00:23 04:00 09:36 09:36 Temp 99.7 98.4 99.7 98.4 Pulse 82 84 84 Resp 18 18 B/P (MAP) 115/53 (73) 120/63 (82) 120/63 120/63 Pulse Ox 92 93 O2 Delivery Room Air Room Air 11/14/17 11/14/17 09:36 09:37 Pulse 84 B/P (MAP) 120/63 120/63 Intake and Output 11/13/17 11/13/17 11/14/17 15:00 23:00 07:00 Output Total 2400 ml Balance -2400 ml Laboratory Tests Test 11/12/17 17:38 11/12/17 19:30 11/13/17 06:46 11/13/17 10:15 White Blood Count 13.9 10^3/uL Red Blood Count 3.58 10^6/uL Hemoglobin 9.6 g/dL Hematocrit 30.1 % Mean Corpuscular Volume 84.1 fL Mean Corpuscular Hemoglobin 26.8 pg Mean Corpuscular Hemoglobin Concent 31.9 g/dL Red Cell Distribution Width 14.5 % Platelet Count 185 10^3/uL Mean Platelet Volume 11.4 fL Neutrophils (%) (Auto) 81.0 % Lymphocytes (%) (Auto) 4.2 % Monocytes (%) (Auto) 14.0 % Neutrophils # (Auto) 11.2 10^3/uL Lymphocytes # (Auto) 0.6 10^3/uL Monocytes # (Auto) 2.0 10^3/uL Absolute Immature Granulocyte (auto 0.09 10^3 u/L Eosinophils % 0.0 % Basophils % 0.2 % Basophils # 0.0 10^3/uL Eosinophil Count 0.0 10^3/uL Sodium Level 135 mmol/L 139 mmol/L Potassium Level 4.0 mmol/L 4.6 mmol/L Chloride Level 100.0 mmol/L 108.0 mmol/L Carbon Dioxide Level 17.8 mmol/L 19.7 mmol/L Anion Gap 21.2 15.9 Blood Urea Nitrogen 37 mg/dL 31 mg/dL Creatinine 2.38 mg/dL 1.91 mg/dL Estimated GFR () 24.5 31.5 BUN/Creatinine Ratio 15.0 16.0 Glucose Level 118 mg/dL 87 mg/dL Calcium Level 8.9 mg/dL 8.3 mg/dL Total Bilirubin 0.5 mg/dL Aspartate Amino Transf (AST/SGOT) 30 U/L Alanine Aminotransferase (ALT/SGPT) 31 U/L Alkaline Phosphatase 103 U/L Troponin I < 0.02 ng/mL Total Protein 7.3 g/dL Albumin 2.6 g/dL Globulin 4.7 Percent Immature Gran (Cell Imm) 0.60 % Urine Collection Type UNKNOWN Urine Color YELLOW Urine Appearance CLOUDY Urine Bilirubin NEGATIVE MG/DL Urine Ketones 5 mg/dL Urine Specific [place] 1.010 Urine pH 5 Urine Protein 15 mg/dL Urine Urobilinogen NORMAL Urine Nitrate NEGATIVE Urine Leukocyte Esterase 500/uL 2+ Urine Blood 10 TR Urine RBC 0-2 RBC/HPF Urine WBC TNTC WBC/HPF Urine Squamous Epithelial Cells FEW #/HPF Urine Bacteria MODERATE Urine Coarse Granular Casts 0-2 #/LPF Urine Glucose NORMAL Influenza Type A Antigen NEGATIVE Influenza B Immunofluorescence NEGATIVE Test 11/14/17 04:56 Sodium Level 139 mmol/L Potassium Level 3.9 mmol/L Chloride Level 107.0 mmol/L Carbon Dioxide Level 19.6 mmol/L Glucose Level 83 mg/dL Blood Urea Nitrogen 24 mg/dL Creatinine 1.56 mg/dL Calcium Level 8.3 mg/dL Anion Gap 16.3 Estimated GFR () 39.8 BUN/Creatinine Ratio 15.0 Current Medications Medications (Trade) Dose Ordered Sig/Doug PRN Reason Start Time Stop Time Status Last Admin Acetaminophen (Tylenol) 1,000 mg Q6H PRN PAIN 11/13/17 00:30 12/13/17 00:29 Amlodipine Besylate (Norvasc) 10 mg DAILY 11/13/17 09:00 12/13/17 08:59 11/14/17 09:36 Aspirin (Aspirin Ec) 81 mg DAILY 11/13/17 09:00 12/13/17 08:59 11/14/17 09:36 Bupropion HCl (Wellbutrin Xl) 300 mg DAILY 11/13/17 09:00 12/13/17 08:59 11/14/17 09:36 Ceftriaxone Sodium 1000 mg/ Sodium Chloride 100 ml @ 100 mls/hr Q24HRS 11/12/17 20:30 12/12/17 20:29 11/13/17 21:43 Cyclobenzaprine HCl (Flexeril) 10 mg TID PRN PAIN 11/13/17 08:30 12/13/17 08:29 Famciclovir (Famvir) 500 mg BID 11/13/17 09:00 12/13/17 08:59 11/14/17 09:36 Furosemide (Lasix) 20 mg DAILY 11/13/17 09:00 12/13/17 08:59 11/14/17 09:36 Gabapentin (Neurontin) 300 mg TID 11/13/17 09:00 12/13/17 08:59 11/14/17 09:37 Lidocaine HCl (Lidocaine Viscous) 20 ml PRN PRN PAIN 11/12/17 22:00 12/12/17 21:59 11/13/17 19:32 Losartan Potassium (Cozaar) 100 mg DAILY 11/13/17 09:00 12/13/17 08:59 11/14/17 09:36 Metoprolol Tartrate (Lopresser) 25 mg BID 11/13/17 09:00 12/13/17 08:59 11/14/17 09:37 Nystatin (Mycostatin) 500,000 unit TID 11/13/17 09:00 12/13/17 08:59 11/14/17 09:35 Oxybutynin Chloride (Ditropan) 5 mg TID 11/13/17 09:00 12/13/17 08:59 11/14/17 09:37 Pantoprazole Sodium (Protonix) 40 mg DAILY 11/13/17 09:00 12/13/17 08:59 11/14/17 09:36 Pramipexole Dihydrochloride (Mirapex) 0.5 mg HS 11/13/17 21:00 12/13/17 20:59 11/13/17 21:44 Ropinirole HCl (Requip) 1 mg HS 11/13/17 22:30 12/13/17 22:29 11/13/17 22:34 Simvastatin (Zocor) 20 mg HS 11/13/17 21:00 12/13/17 20:59 11/13/17 21:43 Sodium Chloride 1,000 ml @ 100 mls/hr Q10H 11/13/17 22:00 12/13/17 21:59 11/14/17 07:51 Assessment/Plan Assessment/Plan Assessment/Plan 67 yo female with UTI, ARF, HTN, DM - cont IVF and IV abx - recheck labs tomorrow - ambulate- follow BPs and sugars ELMIRA HANSEN MD Nov 14, 2017 11:09
[2017-11-14 13:30] VITALS: BP 111/45
[2017-11-14] MEDS: HNS 1000ML/KCL 20MEQ 1,000 ML IV SCH (16:42)
[2017-11-14 17:23] VITALS: BP 100/62
[2017-11-14 20:03] VITALS: BP 131/56
[2017-11-14] MEDS: ROCEPHIN 1,000 MG in NS 100ML 100 ML IV SCH (20:32)
[2017-11-14] MEDS: REQUIP PO SCH (20:50)
[2017-11-14] MEDS: MIRAPEX PO SCH (20:50)
[2017-11-14] MEDS: ZOCOR PO SCH (20:50)
[2017-11-15 00:43] VITALS: BP 110/53
[2017-11-15] MEDS: HNS 1000ML/KCL 20MEQ 1,000 ML IV SCH (03:58)
[2017-11-15 04:26] VITALS: BP 124/44
[2017-11-15 04:59] LABS: BASOPHIL # 0.1 10^3/uL (0.0-0.1); BASOPHIL % 0.4 % (0.0-0.2); EOSINOPHIL # 0.1 10^3/uL (0.0-0.2); EOSINOPHIL % 0.8 % (0.0-5.0); HEMOGLOBIN 8.4 g/dL (12.0-15.0); LYMPHOCYTES # 1.4 10^3/uL (1.0-4.8); LYMPHOCYTES % 8.7 % (24.0-44.0); MEAN CELL HGB 26.6 pg (26-34); MEAN CELL HGB CONCENTRATION 31.9 g/dL (33-37); MEAN CORP VOLUME 83.2 fL (78-100); MEAN PLATELET VOLUME 10.8 fL (7.8-11.0); MONOCYTES # 1.8 10^3/uL (0.3-0.8); MONOCYTES % 11.1 % (5.0-12.0); NEUTROPHIL # 12.1 10^3/uL (1.8-7.7); NEUTROPHILS % 76.7 % (41.0-85.0); RED CELL DISTRIBUTION WIDTH 14.8 % (11.5-14.5); WHITE BLOOD CELL 15.8 10^3/uL (4.5-11.0)
[2017-11-15 05:14] LABS: CALCIUM 8.6 mg/dL (8.4-10.5); CARBON DIOXIDE 19.6 mmol/L (20.0-32)
[2017-11-15 06:18] LABS: BAND NEUTROPHILS 11 % (2-6); LYMPHOCYTE 8 % (25-36); SEGMENTED NEUTROPHILS 69 % (31-76)
[2017-11-15 06:19] LABS: EOSINOPHIL 2 % (1-4); MONOCYTE 8 % (3-9); NUCLEATED RED BLOOD CELLS 1 % (0-0)
[2017-11-15 07:01] LABS: BILIRUBIN,URINE NEGATIVE (NEGATIVE); UROBILINOGEN,URINE NORMAL (NEGATIVE)
[2017-11-15 07:14] LABS: APPEARANCE,URINE CLEAR (CLEAR); UA COLOR YELLOW (YELLOW)
[2017-11-15 08:30] VITALS: BP 116/55
[2017-11-15] MEDS: MYCOSTATIN PO SCH (08:32)
[2017-11-15] MEDS: DITROPAN PO SCH (08:32)
[2017-11-15] MEDS: NEURONTIN PO SCH (08:32)
[2017-11-15] MEDS: WELLBUTRIN XL PO SCH (08:32)
[2017-11-15] MEDS: FAMVIR PO SCH (08:32)
[2017-11-15] MEDS: ASPIRIN EC PO SCH (08:33)
[2017-11-15] MEDS: LASIX PO SCH (08:34)
[2017-11-15] MEDS: NORVASC PO SCH (08:34)
[2017-11-15] MEDS: COZAAR PO SCH (08:34)
[2017-11-15] MEDS: LOPRESSER PO SCH (08:35)
[2017-11-15] MEDS: PROTONIX PO SCH (08:48)
[2017-11-15] MEDS ORDERED: CEPH-350 PO (11:54)
[2017-11-15 12:10] VITALS: BP 116/55
--- NOTE | 2017-11-15 12:10 | NUR ---
D/C PT D/C INSTRUCTIONS GIVEN TO PT. VERBALIZED UNDERSTANDING. NO S/S OF DISTRESS NOTED, PT OFF OF FLOOR VIA W/C, BUCKLED INTO CAR. RELINQUISHED CARE OF PT.
--- NOTE | 2017-11-15 17:13 | DSH ---
DATE OF DISCHARGE: 11/15/2017 ADMITTING DIAGNOSES: 1. Acute renal failure with acute tubular necrosis and dehydration. 2. Urinary tract infection. 3. Hypertension with type 2 diabetes mellitus. DISCHARGE DIAGNOSES: Escherichia coli UTI, resolving with acute renal failure, resolving and chronic kidney disease with type 2 diabetes mellitus and hypertension. HOSPITAL COURSE: The patient is a pleasant 67-year-old female who came in dehydrated and having acute renal failure. Her creatinine was up to 2.4. UA was abnormal. She was diagnosed with the UTI with dehydration, acute renal failure. IV antibiotics were started on her and she was given IV fluids. Her creatinine has improved during her stay here. Her creatinine is down to 1.5 now. I do suspect she does have chronic kidney disease, but this is probably her baseline for her, but she is feeling a lot better at this point. Vital signs are stable. She is afebrile. Her white count did go up to 15,000, but I believe this is just the tail and affect of her infection and stress response to her body. She is feeling better. Her urine is clear. We got the report back from the sensitivities of her urine culture and it is a rather sensitive E. coli. She is hydrating well, but she feels good at this point to go home so I will send her home. Continue home medications. I am going to put her on Keflex 500 mg twice a day for 7 more days, resume home diet and activity level. I have asked her to follow up with her primary care provider Ziyad Green later on this week to check up on her. Charlotte Clifton MD DR: NIXON/kortney JOB# [id number]
== END 2017-11-15 12:24 | disposition home or self-care (01) | DRG 682 ==
LOC: ER 17:10 → MS 20:11 → EDPENDDISTM 11-15 12:10 → EDPENDDISDT 11-15 20:45
PROVIDERS: ADMIT Internal Medicine; ATTEND Internal Medicine
DX: N17.0 Acute kidney failure with tubular necrosis (principal); R65.11 Systemic inflammatory response syndrome (SIRS) of non-infectious origin with acute organ dysfunction; N39.0 Urinary tract infection, site not specified; E44.0 Moderate protein-calorie malnutrition; E86.0 Dehydration; K21.9 Gastro-esophageal reflux disease without esophagitis; E78.5 Hyperlipidemia, unspecified; D63.8 Anemia in other chronic diseases classified elsewhere; B37.9 Candidiasis, unspecified; N18.3 Chronic kidney disease, stage 3 (moderate); I12.9 Hypertensive chronic kidney disease with stage 1 through stage 4 chronic kidney disease, or unspecified chronic kidney disease; B34.9 Viral infection, unspecified; E11.22 Type 2 diabetes mellitus with diabetic chronic kidney disease; E11.42 Type 2 diabetes mellitus with diabetic polyneuropathy; B96.20 Unspecified Escherichia coli [E. coli] as the cause of diseases classified elsewhere; Z90.710 Acquired absence of both cervix and uterus; Z90.49 Acquired absence of other specified parts of digestive tract; Z88.0 Allergy status to penicillin; Z91.018 Allergy to other foods; Z91.038 Other insect allergy status; Z82.3 Family history of stroke; Z82.5 Family history of asthma and other chronic lower respiratory diseases; Z83.3 Family history of diabetes mellitus; Z82.49 Family history of ischemic heart disease and other diseases of the circulatory system; Z68.34 Body mass index [BMI] 34.0-34.9, adult
CPT/HCPCS: 36415; 80048; 80053; 81000; 81002; 82948; 84484; 85025; 86710; 87077; 87086; 87186; 96360; 96361; 99285; J0696; J3490; J7030; J7050

== ENCOUNTER → 2018-05-19 | Outpatient (CLI) | payer BC, MEDICARE ==
[~2018-05-19] MED LIST changes: -AMLO10TA6 PO; +AMLO10TA8 PO; +CEPH-350 PO; +FAMC500T PO; +ONDA4TAB12 PO
--- NOTE | 2018-05-19 14:34 | DIREP ---
PROCEDURE:BONE DENSITY PERIPHERAL INDICATIONS:SCREENING COMPARISON:None. FINDINGS: Proximal right femur bone mineral density (BMD) (g/cm2):1.007 Right Femur T-score (standard deviation relative to young adult mean BMD):0.0 Right Femur Z-score (standard deviation relative to age-matched control group): 0.9 Proximal left femur bone mineral density (BMD) (g/cm2):1.002 Left Femur T-score (standard deviation relative to young adult mean BMD):0.0 Left Femur Z-score (standard deviation relative to age-matched control group): 0.9 Lumbar bone mineral density (BMD) (g/cm2):1.304 Lumbar T-score (standard deviation relative to young adult mean BMD):0.9 Lumbar Z-score (standard deviation relative to age-matched control group):1.8 Change since prior exam (%): Femur:Not applicable. Spine:Not applicable. Change since oldest prior exam (%): Femur:Not applicable. Spine:Not applicable. CONCLUSION: 1. Normal bone mineral density of the proximal femora and lumbar spine by WHO criteria. Fracture risk is not increased. 2.Ten year probability of fracture (FRAX results): Major osteoporotic fracture-8.3%; hip fracture 0.8%. *Note: The Z-score is provided for informational purposes. The T-score is preferable for clinical decisions. When comparing exams, a change of >4% is considered statistically significant. SUGGESTED RECOMMENDATIONS: Normal & Osteopenia:Consideration should be given to use of calcium supplementation, daily multiple vitamins and adequate exercise, as preventive measures against osteoporosis, if clinically indicated. Osteoporosis & Severe Osteoporosis:In addition to the above, consideration should be given to medical therapy against osteoporosis, if clinically indicated. Dictated by: Jose Klein M.D. on 05/19/2018 at 02:31 PM
== END | disposition home or self-care (01) ==
LOC: BD 10:33
PROVIDERS: ATTEND Nurse Practitioner Family
DX: Z13.820 Encounter for screening for osteoporosis (principal)
CPT/HCPCS: 77080

== ENCOUNTER → 2018-12-13 | Outpatient (CLI) | payer BC, MEDICARE ==
--- NOTE | 2018-12-13 12:38 | DIREP ---
PROCEDURE:CHEST 2 VIEWS COMPARISON:None. INDICATIONS:R05 COUGH FINDINGS: LUNGS/PLEURA:No significant pulmonary parenchymal abnormalities. No effusions. VASCULATURE:Normal. Unremarkable pulmonary vasculature. CARDIAC:Normal. No cardiac silhouette abnormality or cardiomegaly. MEDIASTINUM:Normal. No visible mass or adenopathy. BONES:Surgical changes of the cervical spine OTHER:Negative. CONCLUSION:Normal examination. Dictated by: Greg Murillo MD on 12/13/2018 at 12:34 PM
--- NOTE | 2018-12-13 13:18 | DIREP ---
PROCEDURE:XRAY HIP MIN 2VW-RT COMPARISON:None. INDICATIONS:M25.551 PAIN IN RIGHT HIP FINDINGS: BONES:Normal. JOINTS:Mild right superolateral acetabular hypertrophy and small subchondral cysts. Mild medial joint space narrowing. SOFT TISSUES:Normal. OTHER:No additional findings. CONCLUSION:Mild degenerative changes. No acute bony abnormality. Dictated by: Chata Forrester MD on 12/13/2018 at 01:16 PM
--- NOTE | 2018-12-13 16:59 | DIREP ---
PROCEDURE:US THYROID TECHNIQUE:Thyroid ultrasound was performed with a high-frequency transducer. COMPARISON:[facility], [place], US GUIDANCE FOR NEEDLE PLACEMENT, 11/08/2015, 08:51 AM. [facility], [place], US THYROID, 10/18/2015, 10:33 AM. INDICATIONS:E04.1 NONTOXIC SINGLE THYROID NODULE FINDINGS: THYROID OVERVIEW Right lobe - size: 4.4 x 2.1 x 2.7 cm, heterogeneous, 2 nodules Isthmus - size: 0.4 cm, heterogeneous, 0 nodules Left lobe - size: 4.5 x 2.1 x 2.0 cm, heterogeneous, 2 nodules THYROID NODULES Right Lobe, #1, Lower 1/3, size: 2.4 x 1.8 x 1.6 cm, prior size: 1.6 x 1.4 x 1.3 cm Description: mixed cystic and solid, isoechoic, [id number], ill-defined TI-RADS: 2, Recommendation: Prior benign biopsy (11/08/2015) - Consistent with a benign follicular nodule - implies a 0-3 % risk of malignancy. Notably, with comparison to the baseline ultrasound 10/18/2015, this appears to correlate with the more inferior nodule that was sampled. There was a larger nodule seen above this level on prior study that was not demonstrated on this examination. Right Lobe, #2, Upper 1/3, size: 0.4 x 0.3 x 0.2 cm, Description: cystic, anechoic, [id number], smooth, small comet-tail artifacts TI-RADS: 1, Recommendation: No F/U or FNA required Left Lobe, #1, Upper 1/3, size: 1.2 x 1.2 x 1.1 cm, Description: mixed cystic and solid, isoechoic, vrtfo-hpiy-[id number], irregular, punctate echogenic foci TI-RADS: 5, Recommendation: FNA Left Lobe, #2, Lower 1/3, size: 1.4 x 1.1 x 1.1 cm, prior size: 0.8 x 0.9 x 0.8 cm Description: mixed cystic and solid, hyperechoic, ediik-dmhc-[id number], irregular TI-RADS: 4, Recommendation: follow at 1,2,3, and 5 years TI-RADS: 1 = Benign, 2 = Not Suspicious, 3 = Mildly Suspicious, 4 = Moderately Suspicious, 5 = Highly Suspicious Reference: 2017 JACR, ACR Thyroid Imaging, Reporting and Data System (TIRADS): White Paper of the ACR TI-RADS Committee. OTHER:No additional findings. CONCLUSION: 1. FNA of 1 nodule recommended (see above). 2. Follow-up recommended, as indicated above. Dictated by: PARAM Physician on 12/13/2018 at 03:06 PM ac
== END | disposition home or self-care (01) ==
LOC: RAD 11:26
PROVIDERS: ATTEND Nurse Practitioner Family
DX: E04.2 Nontoxic multinodular goiter (principal); M16.11 Unilateral primary osteoarthritis, right hip
CPT/HCPCS: 71046; 73502; 76536

== ENCOUNTER → 2019-04-01 | Outpatient (CLI) | payer BC, MEDICARE ==
[~2019-04-01] MED LIST changes: +BUPR300T92 PO; -FAMC500T PO; +FAMC500T4 PO; +ONDA-87 PO; -ONDA4TAB12 PO; -[UNRECOGNIZED DRUG - CODE] PO
--- NOTE | 2019-04-01 15:44 | DIREP ---
PROCEDURE:MRI JOINT LOWER EXTREMITY-LT W/O COMPARISON:None. INDICATIONS:MENISCAL TEAR TECHNIQUE:A complete multi-planar MRI was performed. FINDINGS: LIGAMENTS:Anterior cruciate ligament is intact. The posterior cruciate ligament is normal. Grade 2 medial collateral ligament injury. The lateral collateral ligament complex within normal limits. The popliteus tendon is normal. MENISCI:Disruption of the posterior horn root attachment of the medial meniscus.. CARTILAGE:Near complete denuding of the medial compartment cartilage. EXTENSOR MECHANISM: Intact BONES:Osseous contusion and bone marrow edema within the medial tibial plateau. No definite fracture line.. JOINT SPACE:Large effusion OTHER: Thickened medial patellar plica. Mild strain of the popliteus muscle. Small Yost's cyst CONCLUSION: 1. Suspected disruption of the posterior horn root attachment of the medial meniscus. 2. Evidence of osseous contusion involving the medial tibial plateau. 3. Thickened medial patellar plica and large joint effusion. 4. Advanced medial compartment chondromalacia. 5. Mild popliteus muscle strain and small Yost's cyst. Dictated by: Manan Rea DO on 04/01/2019 at 03:37 PM
== END | disposition home or self-care (01) ==
LOC: RAD 13:46
PROVIDERS: ATTEND Orthopaedic Surgery
DX: S80.02XA Contusion of left knee, initial encounter (principal); S86.912A Strain of unspecified muscle(s) and tendon(s) at lower leg level, left leg, initial encounter; M94.262 Chondromalacia, left knee; M25.412 Effusion, left shoulder; M71.22 Synovial cyst of popliteal space [Baker], left knee; X58.XXXA Exposure to other specified factors, initial encounter; Y93.89 Activity, other specified; Y92.89 Other specified places as the place of occurrence of the external cause; Y99.8 Other external cause status
CPT/HCPCS: 73721

== ENCOUNTER → 2019-09-15 | Outpatient (CLI) | payer BC, MEDICARE | END | disposition home or self-care (01) | LOC: LAB 15:57 | PROVIDERS: ATTEND Nurse Practitioner Family | DX: E87.5 Hyperkalemia (principal) | CPT/HCPCS: 36415; 84132 ==

== ENCOUNTER → 2020-05-08 | Outpatient (CLI) | payer BC, MEDICARE ==
[~2020-05-08] MED LIST changes: +AMLO-170 PO; -AMLO10TA8 PO
[2020-05-08 15:58] LABS: CALCIUM 9.5 mg/dL (8.4-10.5); CARBON DIOXIDE 27.5 mmol/L (20.0-32)
== END | disposition home or self-care (01) ==
LOC: NPLAB 15:42
PROVIDERS: ATTEND Internal Medicine Cardiovascular Disease
DX: I25.10 Atherosclerotic heart disease of native coronary artery without angina pectoris (principal)
CPT/HCPCS: 36415; 80048

== ENCOUNTER → 2020-07-23 | Outpatient (CLI) | payer BC, MEDICARE ==
--- NOTE | 2020-07-23 14:06 | DIREP ---
PROCEDURE:US KIDNEYS-BILAT COMPARISON:None. INDICATIONS:ACUTE KIDNEY FAILURE, dm, htn TECHNIQUE:Ultrasound examination was performed of the kidneys and bladder. FINDINGS: RIGHT KIDNEY:9.6 x 5.4 x 5.7 cm. Cortex: 1.3 cm LEFT KIDNEY: 10.9 x 5.3 x 5.2 cm. Cortex: 1.3 cm BLADDER (pre-void):11.0 x 7.1 x 10.2 cm. Volume 417.1 ml BLADDER (post-void): 3.7 x 5.5 x 7.5 cm. Volume 79.9 ml MICTURATED VOLUME: 337.2 ml RIGHT KIDNEY: There is no hydronephrosis or suspicious cortical lesion. LEFT KIDNEY: There is no hydronephrosis or suspicious cortical lesion. BLADDER:Normal. Bilateral ureteral jets visualized. No visible wall thickening, mass, or calculus. Postvoiding residual is estimated to be 79 cubic cm. OTHER:Negative. CONCLUSION: 1. Normal kidneys. 2. Moderate postvoiding residual. Dictated by: [facility] HE[facility] SYSTEMSAlexi Physician on 07/23/2020 at 01:54 PM ac
== END | disposition home or self-care (01) ==
LOC: RAD 10:39
PROVIDERS: ATTEND Internal Medicine Nephrology
DX: N17.9 Acute kidney failure, unspecified (principal); E11.9 Type 2 diabetes mellitus without complications; I10 Essential (primary) hypertension
CPT/HCPCS: 76770

== ENCOUNTER → 2020-08-30 | Outpatient (CLI) | payer BC, MEDICARE ==
[2020-08-30 11:20] LABS: MEAN CORP HGB 28.6 pg (26-34); RED CELL DISTRIBUTION WIDTH 15.4 % (11.5-14.5)
[2020-08-30 11:49] LABS: CALCIUM 9.1 mg/dL (8.4-10.5); CARBON DIOXIDE 29.9 mmol/L (20.0-32)
== END | disposition home or self-care (01) ==
LOC: LAB 11:01
PROVIDERS: ATTEND Internal Medicine Nephrology
DX: N17.9 Acute kidney failure, unspecified (principal); M06.9 Rheumatoid arthritis, unspecified
CPT/HCPCS: 36415; 80069; 82570; 84156; 84550; 85027; 85651; 86140; 86431